=== PATIENT | female | born 1970 | race Caucasian/White ===

== ENCOUNTER 2018-02-06 08:52 | Emergency (ER) | payer OTHER ==
[~2018-02-06] VITALS: Ht 165.1 cm; Wt 72.6 kg
[~2018-02-06 08:52] MED LIST: UNK ANTIBIOTIC PO
[2018-02-06 08:59] VITALS: BP 115/75
--- NOTE | 2018-02-06 09:06 | NUR ---
PT AMBULATED TO BED 7 WITH FAMILY
--- NOTE | 2018-02-06 09:10 | NUR ---
47 YO F BIB FAMILY W/ C/O BACK PAIN X 3-4 DAYS. PT DENIES INJURY/TRAUMA, STATES SHE WOKE UP IN THE MORNIG AND IT WAS EXCRUTIATING. DENIES N/V/D/FEVER, REPORTS CHILLS. NO MEDICATION TAKEN FOR THE PAIN. "10/10 SQUEEZING, STABBING, CONSTANT PAIN THAT IS CRIPPLING" TO WHERE SHE CANNOT MOVE. LS CLEAR THROUGHOUT, ABD SOFT NON TENDER. ER MD SABAS AWARE. WILL CONTINUE TO MONITOR. PT POSITIONED FOR COMFORT. HX SCIATICA, BULGING HERNIATED DISCS, ECTOPIC PREGNANCIES, MRSA RX DENIES
--- NOTE | 2018-02-06 09:25 | NUR ---
DR LESLIE AT BEDSIDE FOR PT EVAL
[2018-02-06] MEDS ORDERED: LORazepam 2 MG/ML VIAL IM ONE (09:45)
[2018-02-06] MEDS ORDERED: HYDROmorphone 1 MG/ML AMP IM ONE (09:45)
[2018-02-06] MEDS ORDERED: KETOROLAC 60 MG/2 ML VIAL IM ONE (09:45)
--- NOTE | 2018-02-06 10:25 | NUR ---
PT PLACED ON BED FERRIS
--- NOTE | 2018-02-06 10:30 | NUR ---
BEDBAN REMOVED, NO URINE
--- NOTE | 2018-02-06 10:51 | NUR ---
# 14 FR Urinary catheter inserted utilizing sterile technique. Immediate return of 60 ml ANA CRISTINA CLEAR urine noted. Urine sample collected and sent to lab. Pt tolerated procedure WELL. CATHETER REMOVED AFTER URINE COLLECTION
--- NOTE | 2018-02-06 10:57 | NUR ---
PT TO CT VIA DEBI IN STABLE CONDITION WITH INSTRUMENT MAKER
[2018-02-06 12:00] VITALS: BP 110/61
--- NOTE | 2018-02-06 12:00 | NUR ---
Patient discharged with v/s stable. Written and verbal after care instructions given and explained. Patient alert, oriented and verbalized understanding of instructions. Ambulatory with steady gait. All questions addressed prior to discharge. ID band removed. Patient advised to follow up with PMD. Rx of visteril, volaren given. Patient educated on indication of medication including possible reaction and side effects. Opportunity to ask questions provided and answered.
== END 2018-02-06 12:00 | disposition home or self-care (01) ==
LOC: MED 08:52
DX: M54.42 Lumbago with sciatica, left side (principal); M54.41 Lumbago with sciatica, right side; J44.9 Chronic obstructive pulmonary disease, unspecified; Z88.1 Allergy status to other antibiotic agents; Z88.0 Allergy status to penicillin; Z88.2 Allergy status to sulfonamides
CPT/HCPCS: 72131; 81002; 81025; 96372; 99284; J1170; J1885; J2060

== ENCOUNTER 2020-01-06 22:08 | Emergency (ER) | payer MEDICAID, SELFPAY ==
[~2020-01-06] VITALS: Ht 165.1 cm; Wt 83.5 kg
[2020-01-06 22:15] VITALS: BP 151/83
--- NOTE | 2020-01-06 22:15 | NUR ---
PT AMBULATED TO TENT WITH STEADY GAIT
--- NOTE | 2020-01-06 22:16 | NUR ---
49 YO F BIB SELF FOR C/C OF SOB AND FEVER X3 DAYS. PT PRESENTS AFEBRILE AND 100% ON ROOM AIR. PT STATES SHE FEELS TIGHTNESS IN HER CHEST "LIKE SOMEONE IS STANDING ON MY CHEST". 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 LUNG SOUNDS CLEAR THROUGHOUT. DENIES N/V/D, LEON, BODY WEAKNESS, OR LOSS OF TASTE/SMELL. DENIES TAKING ANY OTC MEDS TODAY. MED HX: COPD DENIES RX
--- NOTE | 2020-01-06 22:31 | NUR ---
ERMD ASSESSING PT IN TENT
--- NOTE | 2020-01-06 22:45 | NUR ---
COVID SWAB COLLECTED ORALLY AND SENT TO LAB
[2020-01-06 23:00] VITALS: BP 151/83
--- NOTE | 2020-01-06 23:00 | NUR ---
Patient discharged with v/s stable. Written and verbal after care instructions given and explained. Patient verbalized understanding. Ambulatory with steady gait. All questions addressed prior to discharge. Advised to follow up with PMD.
== END 2020-01-06 23:00 | disposition home or self-care (01) ==
LOC: MED 22:08
DX: J18.8 Other pneumonia, unspecified organism (principal); J44.9 Chronic obstructive pulmonary disease, unspecified; Z20.828 Contact with and (suspected) exposure to other viral communicable diseases; Z88.1 Allergy status to other antibiotic agents; Z88.0 Allergy status to penicillin; Z88.2 Allergy status to sulfonamides
CPT/HCPCS: 99283; U0003

== ENCOUNTER 2021-05-28 12:58 | Emergency (ER) | payer OTHER, SELFPAY ==
[~2021-05-28] VITALS: Ht 165.1 cm; Wt 68.0 kg
[2021-05-28 13:11] VITALS: BP 149/98
--- NOTE | 2021-05-28 13:17 | NUR ---
novel swabbed at this time
[2021-05-28] MEDS ORDERED: POLY10SO OP (14:07)
[2021-05-28] MEDS ORDERED: DOXY-690 PO (14:07)
[2021-05-28] MEDS ORDERED: NAPR-54 PO (14:07)
--- NOTE | 2021-05-28 14:35 | NUR ---
Patient discharged with v/s stable. Written and verbal after care instructions given FOR BACTERIAL CONJUNCTIVITIS, INGRWOWN TOENAIL, AND VIRAL ILLNESS and explained. Patient alert, oriented and verbalized understanding of instructions. Ambulatory with steady gait. All questions addressed prior to discharge. ID band removed. Patient advised to follow up with PMD. Rx of VIBRAMYCIN, NAPROXEN, AND POLYTRIM EYE DROPS given. Patient educated on indication of medication including possible reaction and side effects. Opportunity to ask questions provided and answered.
[2021-05-28 14:44] VITALS: BP 140/94
--- NOTE | 2021-05-28 14:44 | NUR ---
NO NURSING INTERVENTIONS NEEDED, NO COMPLETE ASSESSMENT NEEDED.
== END 2021-05-28 14:35 | disposition home or self-care (01) ==
LOC: MED 12:58
DX: B34.9 Viral infection, unspecified (principal); Z20.822 Contact with and (suspected) exposure to COVID-19; L60.0 Ingrowing nail; H10.9 Unspecified conjunctivitis; J44.9 Chronic obstructive pulmonary disease, unspecified; Z79.899 Other long term (current) drug therapy; Z88.0 Allergy status to penicillin; Z88.1 Allergy status to other antibiotic agents; Z88.2 Allergy status to sulfonamides
CPT/HCPCS: 99283; U0003